=== PATIENT | male | born 2000 | race American Indian/Alaskan Native ===

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

== ENCOUNTER 2019-06-24 11:49 | Emergency (ER) | payer OTHER ==
[2019-06-24] MEDS ORDERED: HYDROcodone/ACETAMINOPHEN 10-325MG TAB PO ONE (11:56)
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
[2019-06-24] MEDS ORDERED: SODIUM CHLORIDE 0.9% 1000 ML 1,000 ML IV ONE (13:00)
[2019-06-24] MEDS ORDERED: MORPHINE 4 MG/1 ML INJ IV ONE (13:01)
[2019-06-24] MEDS ORDERED: ONDANSETRON 4 MG/2 ML INJ IV ONE (13:01)
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
[2019-06-24] MEDS ORDERED: BACITRACIN ZINC OINT 28.4 GM TP ONE (13:12)
[2019-06-24] MEDS ORDERED: LACTATED RINGERS 1,000 ML IV ONE (13:12)
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
[2019-06-24] MEDS ORDERED: HYDROmorphone 1 MG/1 ML INJ IV ONE (13:49)
[2019-06-24 16:21] VITALS: BP 126/56
== END 2019-06-24 17:00 | disposition other institution (70) ==
LOC: ED 11:49
DX: T22.20XA Burn of second degree of shoulder and upper limb, except wrist and hand, unspecified site, initial encounter (principal); J45.909 Unspecified asthma, uncomplicated; F17.200 Nicotine dependence, unspecified, uncomplicated; F12.10 Cannabis abuse, uncomplicated; X15.8XXA Contact with other hot household appliances, initial encounter; Y93.89 Activity, other specified; Y92.89 Other specified places as the place of occurrence of the external cause; Y99.8 Other external cause status
CPT/HCPCS: 16020; 96374; 96375; 99284; J1170; J2270; J2405; J7120